=== PATIENT | female | born 1955 | race Caucasian/White ===

== ENCOUNTER 2021-10-26 13:19 | Outpatient (CLI) | payer MEDICARE, SELFPAY | END 2021-10-26 13:20 | disposition home or self-care (01) | LOC: ANHLAB 13:20 | PROVIDERS: PCP Family Medicine; Visit Provider Family Medicine | DX: E03.9 Hypothyroidism, unspecified (principal) | CPT/HCPCS: 36415; 84443 ==

== ENCOUNTER 2022-03-21 11:10 | Outpatient (CLI) | payer MEDICARE, SELFPAY | END 2022-03-21 11:11 | disposition home or self-care (01) | LOC: ANHLAB 11:12 | PROVIDERS: PCP Family Medicine; Visit Provider Family Medicine | DX: E03.9 Hypothyroidism, unspecified (principal) | CPT/HCPCS: 36415; 84443 ==

== ENCOUNTER 2022-06-28 06:38 | Outpatient (CLI) | payer MEDICARE, SELFPAY ==
--- NOTE | ~2022-06-28 | CT_ITS ---
CT Abdomen with contrast. History: Abdominal pain. Spiral CT of the abdomen was performed after the administration of intravenous contrast. 100 cc of Om nipaque 350 was administered intravenously without complication. Dose reduction technique was used on this scan by utilizing automated exposure control and iterative reconstruction technique. The dose-l ength product (DLP) was 186.37 mGy-cm. COMPARISON: 11/27/2012 Findings: Scans through the lung bases demonstrate mild atelectatic change. The liver, spleen, pancreas, adrenals and kidneys are within normal limits. Cholecystectomy clips are noted. No evidence of aortic aneurysm. No lymphadenopathy is seen. Visualized bowel is unremarkable. No ascites. Impression: No significant abnormalities seen. Reviewed, dictated and finalized at location M. NOMIC SPECIALIST Impression: No significant abnormalities seen.
[2022-06-28 07:12] LABS: Estimated Glomerular Filt Rate > 60
== END 2022-06-28 06:39 | disposition home or self-care (01) ==
PROVIDERS: PCP Family Medicine; Visit Provider Physician Assistant
DX: R10.9 Unspecified abdominal pain (principal)
CPT/HCPCS: 74160; Q9967

== ENCOUNTER 2023-04-21 07:43 | Outpatient (CLI) | payer MEDICARE, SELFPAY ==
--- NOTE | ~2023-04-21 | DEXA_ITS ---
Bone Density Report Name: ANGEL HINKLE Age: 67 Sex: Female Ethnicity: White Date of : 1955 Indication: postmenopausal; screening for osteoporosis; Referring Provider: PENNY FOSS Study: Bone densitometry was performed. Exam Date: April 21, 2023 Accession number: [id number] Bone Density: Region BMD T-score Z-score Classification AP Spine(L1-L4) 0.840 -1.9 0.1 Osteopenia Femoral Neck (Left) 0.754 -0.9 0.8 Normal Total Hip (Left) 0.881 -0.5 0.9 Normal Femoral Neck (Right) 0.726 -1.1 0.6 Osteopenia Total Hip (Right) 0.849 -0.8 0.6 Normal Total Hip Mean 0.865 -0.7 0.8 Normal World Health Organization criteria for BMD impression classify patients as: Normal (T-score at or above -1.0), Osteopenia (T-score between -1.0 and -2.5), or Osteoporosis (T-score at or below -2.5). 10-year Fracture Risk(1): Major Osteoporotic Fracture 8.8% Hip Fracture 0.8% Reported Risk Factors: [place] (), Neck BMD=0.726, BMI=26.8 (1) FRAX(R) Version 3.08. Fracture probability calculated for an untreated patient. Fracture probability may be lower if the patient has received treatment. Clinical Information Provided by Patient: Is being treated for osteoporosis Has used the following medications: Prolia (i.e. denosumab) Patient maximum height was 66 Menopause Age: 49 Drinks caffeinated beverages Onset of menses at age 12 Number of children 3 Impression: The patient has low bone mass, based on the Total Spine T-score. The patient has an estimated ten-year risk of hip fracture of 0.8% and an estimated ten-year risk of major fracture of 8.8%, based on the WHO FRAX algorithm. Discussion: It is important to ask patients whether they are taking their medications and to encourage continued and appropriate compliance with their osteoporosis therapies to reduce fracture risk. It is also important to review their risk factors and encourage appropriate calcium and vitamin D intakes, exercise, fall prevention and other lifestyle measures. Follow-Up: Consider a repeat BMD and Vertebral Fracture Assessment (VFA) exam in 2 years or sooner if medically necessary, to reassess this patient's status. Reported by: CLEMENCIA on 04/21/2023 8:14:00 AM. Reviewed, dictated and finalized at location A. [facility]
== END 2023-04-21 07:44 | disposition home or self-care (01) ==
LOC: ANHIMG 07:46
PROVIDERS: PCP Family Medicine; Visit Provider Nurse Practitioner Family
DX: M85.89 Other specified disorders of bone density and structure, multiple sites (principal); M81.0 Age-related osteoporosis without current pathological fracture
CPT/HCPCS: 77080

== ENCOUNTER 2023-05-22 15:06 | Outpatient (CLI) | payer MEDICARE, SELFPAY ==
--- NOTE | ~2023-05-22 | CT_ITS ---
EXAMINATION: CT abdomen pelvis w con DATE: 05/22/2023 16:23 INDICATION: Right lower quadrant abdominal pain TECHNIQUE: Computed tomography (CT) of the abdomen and pelvis was performed with 100 CC Omnipaque 350 intravenous contrast. Automated exposure control and iterative reconstruction technique were employe d. Exam dose: 664.26 mGy-cm total exam DLP. COMPARISON: June 28, 2022 CT abdomen FINDINGS: Left fat-containing foramen of Bochdalek hernia. The lung bases are clear. Normal heart size. No pericardial or pleural effusion. Status post cholecystectomy. No bile duct or pancreatic duct abnormal dilatation is noted. The liver, spleen, pancreas, and adrenal glands and kidneys are unremarkable except for probable pinp oint nonobstructing lower pole right renal calculus. Normal caliber of the abdominal aorta. No intraperitoneal or retroperitoneal or pelvic mass lesion or adenopathy or ascites is noted. The uterus, adnexal areas and urinary bladder are unremarkable. Normal appendix. Mild sigmoid diverticulosis; no CT evidence of diverticulitis. No bowel obstruction, bowel wall thick ening, pneumatosis or intraperitoneal free air is detected. Small fat-containing umbilical hernia. Included skeletal structures are unremarkable. IMPRESSION: Normal appendix Mild sigmoid diverticulosis; no evidence of diverticulitis Status post cholecystectomy Suggestion of a pinpoint nonobstructing lower pole right renal calculus Reviewed, dictated and finalized at Location A. Reviewed, dictated and finalized at location B. OR EMBEDDED SOFTWARE ENGINEER
[2023-05-22 15:26] LABS: Basophils Percent Auto 0.4 % (0.2-1.2); Eosinophils Absolute Auto 0.1 K/mm3 (0-0.3); Eosinophils Percent Auto 1.2 % (0-4.4); Hematocrit 43.4 % (37.0-47.0); Hemoglobin 14.1 g/dL (12.0-15.0); Immature Granulocyte Absolute 0.02 K/mm3 (0.00-0.031); Immature Granulocyte Percent A 0.4 % (0-0.5); Lymphocytes Absolute Auto 1.85 K/mm3 (0.9-3.2); Lymphocytes Percent Auto 37.1 % (18.3-44.2); Mean Corpuscular HGB Conc 32.5 g/dl (32-36); Mean Corpuscular Hemoglobin 31.5 pg (26-34); Mean Corpuscular Volume 96.9 fl (80-100); Mean Platelet Volume 9.6 fl (7.4-10.4); Monocytes Absolute Auto 0.5 K/mm3 (0.1-0.6); Neutrophils Absolute Auto 2.6 K/mm3 (1.3-6.7); Neutrophils Percent Auto 51.9 % (45.5-73.1); Platelet Count Result 232 k/mm3 (150-375); Red Blood Count 4.48 M/mm3 (4.2-5.4); Red Cell Distribution Width 12.5 % (11.5-14.5)
[2023-05-22 15:40] LABS: Alanine Aminotransferase 19 U/L (6-35); Albumin Level 4.2 g/dL (3.5-5.1); Alkaline Phosphatase 78 U/L (38-126); Amylase 137 U/L (30-110); Anion Gap 6 mmol/L (8-16); Aspartate Amino Transferase 35 U/L (14-36); Bilirubin,Total 0.4 mg/dL (0.2-1.3); Blood Urea Nitrogen 12 mg/dL (7-17); Carbon Dioxide 30 mmol/L (22-30); Chloride 105 mmol/L (98-107); Estimated Glomerular Filt Rate > 60; Glucose 98 mg/dL (65-110); Lipase 129 U/L (23-300); Potassium 4.1 mmol/L (3.4-5.0); Sodium 141 mmol/L (137-145)
== END 2023-05-22 15:07 | disposition home or self-care (01) ==
PROVIDERS: PCP Family Medicine; Visit Provider Nurse Practitioner Family
DX: R10.31 Right lower quadrant pain (principal); K57.30 Diverticulosis of large intestine without perforation or abscess without bleeding; Z90.49 Acquired absence of other specified parts of digestive tract
CPT/HCPCS: 36415; 74177; 80053; 82150; 83690; 85025; Q9967

== ENCOUNTER 2023-06-22 09:07 | Emergency (ER) | payer MEDICARE, SELFPAY ==
[2023-06-22 09:11] VITALS: BP 143/92; PULSE 85; RESP 20; TEMP 36.5; O2SAT 100
--- NOTE | 2023-06-22 10:27 | ED.GIBLEED ---
HPI - GI Bleed General Chief complaint: GI Bleed Stated complaint: Rectal bleed Time Seen by Provider: 06/22/23 10:27 Source: patient Mode of arrival: ambulatory Limitations: no limitations History of Present Illness HPI Narrative: Madison is a 59-year-old female patient presenting to the ER today with complaints of possible rectal bleeding. She reports she noticed yesterday after having a bowel movement wiping she saw bright red blood. States that she has had bright red blood in her stool and when wiping ever since. She denies any abdominal pain, nausea, vomiting, or diarrhea. No history of constipation. Was treated in the ER on May 22 for abdominal pain and was thought to have IBS at that time. Was given dicyclomine and stated that this helped her abdominal pain. No history of Crohn's disease or ulcerative colitis. Last colonoscopy was 2017 and states that it was normal other than diverticulosis and external hemorrhoids. History of colon cancer in the family so she receives colonoscopies every 5 years. Did not have a colonoscopy completed this past year and plans to have 1 done this year. Does have some mild rectal pain Related Data Home Medications Medication Instructions Recorded Confirmed diphenhydramine HCl 25 mg tablet 25 mg PO .QD PRN allergies 02/05/20 05/15/23 (Benadryl Allergy) clobetasol 0.05 % topical ointment topical 05/22/23 Allergies Allergy/AdvReac Type Severity Reaction Status Date / Time No Known Allergies Allergy Verified 06/22/23 12:06 Review of Systems Review of Systems: Pertinent positives per HPI. Patient denies any fever, chills, rash, headache, visual changes, dizziness, cough, runny nose, sore throat, shortness of breath, chest pain, palpitations, nausea, vomiting, diarrhea, constipation, abdominal pain, or any urinary issues. [facility] Past Medical History Medical History Fear of flying Lichen sclerosus Ovarian cyst Family History Family History Sibling Diabetes mellitus Father Hypertension Carcinoma of colon Mother Hypertension Family history of malignant neoplasm Grandparent Cerebrovascular accident Daughter Breast cancer Social History Social History Social History: Caffeine-coffee Smoking status: Never smoker Alcohol intake: current Alcohol use details: rarely Substance use: never Substance use type: does not use Lack of Transportation: No Lack of Food: Never True Current Housing: I Have Housing Concerned About Future Housing: No Difficulty Paying Gas/Electric Bills: No Difficulty Paying for Meds: YES Currently Unemployed: No Education: Master's Degree or Higher Difficulty w/ Childcare or Family Care: No Spiritual care concerns: No Comments At the time of my signature, I reviewed and agree with the nursing past medical, surgical, social, and family history. There is no relevant family history pertinent to the patient complaint. Exam Narrative: General: Well-developed, well nourished, in no apparent distress. Head: Normocephalic, atraumatic. Cardio: Regular rate and rhythm, s1 and s2 normal, no murmur appreciated. Resp: Clear to auscultation bilaterally, no rhonchi, rales, wheezing or rubs. Abdomen: Soft, pliable, bowel sounds present in all quadrants, non-tender to palpation, no organomegly, no CVAT tenderness. Rectum: Tender thrombosed hemorrhoid at 12:00 and another small nonthrombosed hemorrhoid at 9:00, bright red blood noted to the rectum, Hemoccult-positive Course Course Emergency Course: Portions of this record may have been created with voice recognition software. Vital Signs Vital signs: Vital Signs Temperature 36.5 C 06/22/23 09:11 Pulse Rate 85 06/22/23 09:11 Respiratory Rate 20 06/22/23 09:11 Blood
[2023-06-22 11:03] LABS: Basophils Percent Auto 0.4 % (0.2-1.2); Eosinophils Percent Auto 0.9 % (0-4.4); Hematocrit 45.5 % (37.0-47.0); Immature Granulocyte Absolute 0.01 K/mm3 (0.00-0.031); Immature Granulocyte Percent A 0.2 % (0-0.5); Lymphocytes Absolute Auto 1.23 K/mm3 (0.9-3.2); Lymphocytes Percent Auto 27.3 % (18.3-44.2); Mean Corpuscular Hemoglobin 32.1 pg (26-34); Mean Corpuscular Volume 97.2 fl (80-100); Mean Platelet Volume 9.8 fl (7.4-10.4); Monocytes Absolute Auto 0.4 K/mm3 (0.1-0.6); Monocytes Percent Auto 8.2 % (2.6-8.5); Neutrophils Absolute Auto 2.8 K/mm3 (1.3-6.7); Platelet Count Result 243 k/mm3 (150-375); Red Blood Count 4.68 M/mm3 (4.2-5.4); Red Cell Distribution Width 12.9 % (11.5-14.5); White Blood Count 4.5 K/mm3 (4.5-10.0)
[2023-06-22 11:13] LABS: Add Urine Microscopic? YES; Appearance Urine Clear (Clear); Bacteria Urine None Seen /hpf; Bilirubin Urine Negative (Negative); Blood Urine 1+ (Negative); Color Urine Yellow (Yellow); Glucose Urine UA Negative (Negative); Ketones Urine Negative (Negative); Leukocyte Esterase Ur Negative LEU/UL (Negative); Need Manual Microscopic Reviewed; Nitrate Urine Negative (Negative); Non Pathogenic Casts 0-2; Protein Urine Negative (Negative); Specific Grav Ur 1.007 (1.001-1.035); Squamous Epithelial Cell Urine None seen /hpf (Few); Urobilinogen Urine 0.2 mg/dL (<2.0); WBC Urine 0-5 /hpf
[2023-06-22 11:14] LABS: Alanine Aminotransferase 20 U/L (6-35); Albumin Level 4.4 g/dL (3.5-5.1); Alkaline Phosphatase 88 U/L (38-126); Anion Gap 8 mmol/L (8-16); Aspartate Amino Transferase 38 U/L (14-36); Bilirubin,Total 0.5 mg/dL (0.2-1.3); Blood Urea Nitrogen 14 mg/dL (7-17); Calcium 9.3 mg/dL (8.4-10.2); Carbon Dioxide 29 mmol/L (22-30); Chloride 103 mmol/L (98-107); Estimated CRCL calculation 62 ml/min; Estimated Glomerular Filt Rate > 60; Glucose 98 mg/dL (65-110); Potassium 3.8 mmol/L (3.4-5.0); Sodium 140 mmol/L (137-145)
[2023-06-22 11:15] LABS: INR 0.9; Prothrombin Time 12.4 Seconds (11.1-14.7)
[2023-06-22 11:16] LABS: Partial Thromboplastin Time 27.8 SECONDS (22.3-36.8)
[2023-06-22 11:41] VITALS: BP 130/77; PULSE 84; RESP 16; O2SAT 100
[2023-06-22 12:28] VITALS: O2SAT 100
[2023-06-22 12:30] VITALS: BP 123/82; PULSE 68; RESP 16; O2SAT 100
== END 2023-06-22 12:51 | disposition home or self-care (01) ==
PROVIDERS: Student in an Organized Health Care Education/Training Program; Emergency Provider Nurse Practitioner Family; PCP Family Medicine
DX: K64.5 Perianal venous thrombosis (principal)
CPT/HCPCS: 36415; 80053; 81001; 85025; 85610; 85730; 86850; 86900; 86901; 99283

== ENCOUNTER 2023-08-16 06:04 | Day surgery (SDC) | payer MEDICARE, SELFPAY ==
[2023-07-14 15:22] VITALS: BMI 26.9
[2023-08-01 10:32] VITALS: BMI 26.9
--- NOTE | 2023-08-16 07:13 | P.PNAN_ITS ---
Anes - Initial Pre Proc Eval Procedure: Operation Date: 08/16/23 08:30 Proposed Procedures p Colonoscopy - Jhon Haro MD Date/Time: 08/16/23 07:13 Surgeon: Jhon Haro MD Pre Op Diagnosis: Family history of malignant neoplasm of digestive Patient Data Age: 67 Gender: F Height: 1.68 m Weight: 75.5 kg Allergies Allergy/AdvReac Type Severity Reaction Status Date / Time No Known Allergies Allergy Verified 08/16/23 07:18 Home Medications Medication Instructions Recorded Confirmed Type diphenhydramine HCl 25 mg tablet 25 mg PO .QD PRN allergies 02/05/20 08/16/23 History (Benadryl Allergy) denosumab 60 mg/mL subcutaneous 60 mg subcut [id number] #1 mL 09/27/22 08/16/23 Rx syringe (Prolia) alprazolam 0.25 mg tablet (Xanax) 0.25 mg PO TID PRN anxiety #14 tabs 04/05/23 08/16/23 Rx dicyclomine 10 mg capsule 10 mg PO TID PRN abdominal pain 05/22/23 08/16/23 Rx #60 caps hyoscyamine sulfate 0.125 mg 0.125 mg sublingual QID PRN 07/10/23 08/16/23 Rx sublingual tablet dyspepsia #30 tabs levothyroxine 50 mcg tablet 50 mcg PO DAILY 08/01/23 08/16/23 History Patient hx anesthesia problems: none Family hx anesthesia problems: none Results Review: All pre-operative results and documents have been reviewed as part of the pre- operative evaluation. [facility] Past Medical History Medical History (Updated 08/16/23 @ 08:01 by Jhon Haro MD) Anxiety Fear of flying Hypothyroidism (acquired) Lichen sclerosus Ovarian cyst Family History Family History Sibling Diabetes mellitus Father Hypertension Carcinoma of colon Mother Hypertension Family history of malignant neoplasm Grandparent Cerebrovascular accident Daughter Breast cancer Social History Social History Social History: Caffeine-coffee Smoking status: Never smoker Alcohol intake: current Alcohol use details: rarely Substance use: never Substance use type: does not use Lack of Transportation: No Lack of Food: Never True Current Housing: I Have Housing Concerned About Future Housing: No Difficulty Paying Gas/Electric Bills: No Difficulty Paying for Meds: YES Currently Unemployed: No Education: Master's Degree or Higher Difficulty w/ Childcare or Family Care: No Living arrangements: with family Spiritual care concerns: No Anes - Eval Final PreProcedure Day of Procedure 08/16/23 07:13 Patient weight: overweight Heart: regular rate and rhythm Lungs: clear to auscultation Airway: Mallampati scale class II Neurological: alert and oriented Last oral intake: >/= 8 hours ASA classification: II Emergent: no Anesthetic plan: proceed Anesthesia type and monitoring: general GIVS and standard monitoring Results Review: All pre-operative results and documents have been reviewed as part of the pre- operative evaluation. Informed Consent: The patient's anesthetic plan and its attendant risks and benefits were discussed with the patient/family/POA. Questions were solicited and answers provided to the satisfaction of the patient/family/POA.
[2023-08-16 07:30] VITALS: BP 141/85; PULSE 83; RESP 16; TEMP 36.6; O2SAT 100; BMI 26.5
[2023-08-16] MEDS: LACTATED RINGERS 1,000 ML 150 ML IV CONT (07:39)
--- NOTE | 2023-08-16 07:59 | PM.HPGS ---
History of Present Illness History of Present Illness Consent: Risks, benefits, and alternatives have been discussed and questions answered. Patient agrees to proceed with procedure. Chief complaint: Family history of malignant neoplasm of digestive Narrative: Madison Wiggins is a 67 year old female presents for colonoscopy. Patient reports that her current weight appetite and bowel movements are normal. She denies abdominal pain. She has had no bleeding. Family history is significant that her father had colon cancer. Patient's previous colonoscopy 5 years ago was unremarkable. Follow-up by primary care service and felt to have irritable bowel syndrome. Review of Systems Review of Systems: Review of Systems is noncontributory. [facility] Past Medical History Medical History (Updated 08/16/23 @ 08:01 by Jhon Haro MD) Anxiety Fear of flying Hypothyroidism (acquired) Lichen sclerosus Ovarian cyst Family History Family History Sibling Diabetes mellitus Father Hypertension Carcinoma of colon Mother Hypertension Family history of malignant neoplasm Grandparent Cerebrovascular accident Daughter Breast cancer Social History Social History Social History: Caffeine-coffee Smoking status: Never smoker Alcohol intake: current Alcohol use details: rarely Substance use: never Substance use type: does not use Lack of Transportation: No Lack of Food: Never True Current Housing: I Have Housing Concerned About Future Housing: No Difficulty Paying Gas/Electric Bills: No Difficulty Paying for Meds: YES Currently Unemployed: No Education: Master's Degree or Higher Difficulty w/ Childcare or Family Care: No Living arrangements: with family Spiritual care concerns: No Meds Home Medications and Allergies Home Medications Medication Instructions Recorded Confirmed Type diphenhydramine HCl 25 mg tablet 25 mg PO .QD PRN allergies 02/05/20 08/16/23 History (Benadryl Allergy) denosumab 60 mg/mL subcutaneous 60 mg subcut [id number] #1 mL 09/27/22 08/16/23 Rx syringe (Prolia) alprazolam 0.25 mg tablet (Xanax) 0.25 mg PO TID PRN anxiety #14 tabs 04/05/23 08/16/23 Rx dicyclomine 10 mg capsule 10 mg PO TID PRN abdominal pain 05/22/23 08/16/23 Rx #60 caps hyoscyamine sulfate 0.125 mg 0.125 mg sublingual QID PRN 07/10/23 08/16/23 Rx sublingual tablet dyspepsia #30 tabs levothyroxine 50 mcg tablet 50 mcg PO DAILY 08/01/23 08/16/23 History Allergies Allergy/AdvReac Type Severity Reaction Status Date / Time No Known Allergies Allergy Verified 08/16/23 07:18 Vital Signs Vital Signs - 24 hr 08/16/23 07:30 Temperature 97.9 F Pulse Rate 83 Respiratory Rate 16 Blood Pressure 141/85 H Pulse Oximetry 100 Oxygen Delivery Room Air Exam Narrative: Physical exam reveals patient signs stable. HEENT exam is unremarkable. Patient is anicteric. Lungs are clear to auscultation and percussion. Heart is without murmur or extra sounds. Abdomen bowel sounds are present soft nontender with no organomegaly. Digital external rectal exam is normal. Assessment and Plan Assessment and plan (1) Family history of colon cancer in father: Code(s): Z80.0 - Family history of malignant neoplasm of digestive organs Status: Acute Assessment and Plan: Father had colon cancer. Plan is colonoscopy now and consider this at 5 year intervals.
[2023-08-16] MEDS: SIMETHICONE ORAL SUSPENSION 20 MG/0.3 ML 30 ML BOTTLE 0.6 ML IRRIGATION (08:39)
[2023-08-16 08:46] VITALS: BP 108/65; PULSE 71; RESP 16; O2SAT 99
[2023-08-16 08:56] VITALS: BP 107/68; PULSE 71; RESP 16; O2SAT 99
[2023-08-16 09:06] VITALS: BP 109/75; PULSE 63; RESP 16; O2SAT 100
--- NOTE | 2023-08-16 12:28 | WPDANESPN ---
Anes - Prog Note Post-Op Date/Time: 08/16/23 12:28 Cardiovascular status: normal Respiratory status: normal Airway patency: baseline Mental status: baseline Post-Op hydration status: normal Vital Signs: Last Vital Signs Temp 36.6 C 08/16/23 07:30 Pulse 63 08/16/23 09:06 Resp 16 08/16/23 09:06 BP 109/75 08/16/23 09:06 Pulse Ox 100 08/16/23 09:06 O2 Del Method Room Air 08/16/23 09:06 Pain Score (VAS): 0 I/O: Intake & Output 08/15/23 08/16/23 08/16/23 23:59 07:59 15:59 Intake Total 0 Balance 0 Post-procedural complaints: none Patient Feedback: Patient satisfied with anesthetic care. Other Findings: Patient vital signs back to baseline. Patient denies nausea and vomiting. Patient's pain under control. Patient OK for discharge.
== END 2023-08-16 09:14 | disposition home or self-care (01) ==
PROVIDERS: PCP Family Medicine; Visit Provider Internal Medicine Gastroenterology
PROC: 0DJD8ZZ Inspection of Lower Intestinal Tract, Via Natural or Artificial Opening Endoscopic (ICD-10-PCS; CPT 45378; principal; 2023-08-16 08:30)
DX: Z80.0 Family history of malignant neoplasm of digestive organs (principal); K57.30 Diverticulosis of large intestine without perforation or abscess without bleeding; K64.8 Other hemorrhoids
CPT/HCPCS: 45378

== ENCOUNTER 2025-02-21 10:01 | Outpatient (CLI) | payer MEDICARE, SELFPAY ==
--- OUTSIDE RECORDS SUMMARY | 2025-02-21 10:37 | XMS_ITS | Clinical Summary ---
Author Organization [facility] [place] Address [address] [place] [address] Phone Care Team Providers Care Rope Machine Setter Name Role Phone Robin Hobbs MD Primary Care Provider [phone] Allergies No known active allergies Medications levothyroxine 50 mcg tablet 1 Active MELATONIN ORAL Take by mouth. Active diphenhydramine HCl (BENADRYL ALLERGY ORAL) Take by mouth. A ctive pantoprazole (PROTONIX) 40 mg Tablet, Delayed Release (E.C.) Take 40 mg by mouth daily in the morning. 3 Active hyoscyamine sulfate 0.125 mg tablet Take 0.125 mg by mouth every 4 hours as needed for Spasm. Active methocarbamoL (ROBAXIN) 750 mg tablet TAKE 1 TABLET BY MOUTH THREE TIMES DAILY NEEDED FOR MUSCLE PAIN 4 Active denosumab (PROLIA) 60 mg/mL Syringe Inject 60 mg by subcutaneous injection one time only. Active Active Problems Patient Care Coordination No te Formatting of this note migh t be different from the original. 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 Assessment & Plan (12/28/2011 4:07 PM CDT): IOV SHYAM ROV 1 year mammo October Hot flashes - mg and black cohosh rec Anxiety over hubands cva and retiring - serentiy, L theonine, etc Gastric ulcer, unspecified a s acute or chronic, without mention of hemorrhage or perforation Asthma Kidney stones Hay fever Diverticulitis Encounters Date Type Department Care Team Description 01/07/2025 External Device Data STL ABSTRACTION Provider, Abstract from Last 3 Months Family History Medical History Relation Name Comments Breast Cancer Daughter 1 Barb breast cancer stage I, ER positive, HER2 negative Breast Cancer Daughter 2 Daisy Wiggins Cancer Father Zaire bladder Cancer - Other Father Z[place] Bladder cance r Breast Cancer Maternal Cousin 40's Cancer - Other Mother Carmen Stomach cance r Gastric Cancer Mother [place] stomach Other Mother Carmen diabetes Ovarian Cancer Neg Hx Relation Name Status Comments Daughter 1 Barb Daughter 2 Daisy Wiggins Father [place] Maternal Cousin Mother Carmen Social History Tobacco Use Types Packs/Day Years Used Date Smoking Tobacco: Never Smokeless Tobacco: Never Tobacco Cessation:Counseling Given: Not Answered Alcohol Use Standard Drinks/Week Comments Yes 0 (1 standard drink = 0.6 oz pur e alcohol) Feeling Safe Answer Date Recorded Do you worry about feeling s afe and happy with the people in your life? No 04/02/2024 Comments No Sex and Gender Information Value Date Recorded Sex Assigned at Female 03/27/2023 8:26 PM DANCE INSTRUCTOR Legal Sex Female 5:42 AM DANCE INSTRUCTOR Gender Identity Female 03/27/2023 8:26 PM DANCE INSTRUCTOR Sexual Orientation Straight 03/27/2023 8: 26 PM DANCE INSTRUCTOR Occupation Industry Job Start Date Job End Date retired teacher Not on file Not on file Not on file Not on file Not on file Not on file Not on file Last Filed Vital Signs Vital Sign Reading Time Taken Comments Blood Pressure 122/78 04/02/2024 9:39 AM DANCE INSTRUCTOR Pulse 70 03/28/2022 10:44 AM DANCE INSTRUCTOR Temperature 36.8 C (98.2 F) 03/28/2022 10:44 AM DANCE INSTRUCTOR Respiratory Rate 16 03/09/2016 11:14 AM CDT Oxygen Saturation 95% 03/28/2022 10:44 AM DANCE INSTRUCTOR Inhaled Oxygen Concentration - - Weight 77.1 kg (170 lb) 04/02/2024 9:39 AM DANCE INSTRUCTOR Height 167.6 cm (5' 6) 04/02/2024 9:39 AM DANCE INSTRUCTOR Body Mass Index 27.44 04/02/2024 9:39 AM DANCE INSTRUCTOR Plan of Treatment Upcoming Encounters Date Type Department Care Team (Late st Contact Info) Description 04/07/2025 9:30 AM DANCE INSTRUCTOR Appointment [facility] [address] [place] [address] Venus Borrego, SALAZAR [address] [place] [address] 04/07/2025 10:30 AM DANCE INSTRUCTOR Office Visit [facility] [address] [place] [address] [place] [address] Venus Borrego, SALAZAR [address] [place] [address] Health Maintenance Due Date Last Done Comments DTAP/TDAP/TD VACCINES (1 - Tdap) 1973 PNEUMOCOCCAL VACCINE 50+ YEA RS (1 of 2 - PCV) 1973 FIT-DNA Q 3 years 11/28/1999 FIT/FOBT Q 1 year 11/28/1999 Flex Sig/CT Colonography Q 5 years 11/28/1999 ZOSTER VACCINE (1 of 2) 2004 Pre-Diabetes and Diabetes Screening 03/09/2013 03/09/2010 RSV VACCINE (60+ or ) (1 - Risk 60-74 years 1-dose series) 2014 INFLUENZA VACCINE (#1) 2024 01/16/2019 COVID-19 Vaccine (2 - 2024-2 6 season) 2025 02/12/2021 BREAST CANCER SCREENING 04/02/2025 04/02/20 24, 03/29/2023, 03/28/2022, Additional history exists OSTEOPOROSIS SCREENING 03/26/2026 03/26/2021 COLORECTAL SCREENING 08/06/2033 08/07/2023, 11/06/2017, 11/06/2017, Additional history exists Colorectal Cancer Screening 08/06/2033 Procedures Procedure Name Priority Date/Time Associated Diagnosis Comments MAMMO 3D CONNIE SCREEN BILAT W OR WO CAD Routine 04/02/2024 9:27 AM DANCE INSTRUCTOR Breast cancer screening by mammogram XR DEXA BONE DENSITY AXIAL 1 OR MORE SITES Routine 03/26/2021 9:22 AM DANCE INSTRUCTOR Asymptomatic menopausal state Screening for osteoporosis HEMOGLOBIN A1C Routine 03/09/2010 3:29 PM CDT Abnormal liver function from Last 3 Months or Most Recently Relevant to Health Maintenance Results * MAMMO SCRN BILAT 3D CONNIE W OR WO CAD (04/02/2024 9:27 AM DANCE INSTRUCTOR) Anatomical Region Laterality Modality Breast Bilateral Mammography 04/02/2024 9:28 AM DANCE INSTRUCTOR Impressions 04/02/2024 10:53 AM DANCE INSTRUCTOR IMPRESSION: No suspicious findings to suggest malignancy in either breast. Annual mammography is recommended. OVERALL FINAL ASSESSMENT: BI-RADS CATEGORY 1: Negative DICTATION LOCATION: [facility] 04/02/2024 10:53 AM DANCE INSTRUCTOR BILATERAL SCREENING DIGITAL MAMMOGRAM WITH 3D TOMOSYNTHESIS AND CAD DATE: 04/02/2024 9:27 AM HISTORY: Routine screening. TECHNIQUE: Full-field digital craniocaudal and mediolateral oblique projections of both breasts were obtained. Low-dose full-field digital breast tomosynthesis examination was performed with 2D and 3D acquisitions. Examination is read in conjunction with computer aided detection. COMPARISON: 03/29/2023 and older BREAST COMPOSITION: There are scattered areas of fibroglandular density. FINDINGS: No suspicious mass, suspicious microcalcifications, or architectural distortion is identified in either breast. Computer aided detection was used in the interpretation of this examination. Procedure Note Kassandra Rodríguez MD - 04/02/2024 BILATERAL SCREENING DIGITAL MAMMOGRAM WITH 3D TOMOSYNTHESIS AND CAD DATE: 04/02/2024 9:27 AM HISTORY: Routine screening. TECHNIQUE: Full-field digital craniocaudal and mediolateral oblique projections of both breasts were obtained. Low-dose full-field digital breast tomosynthesis examination was performed with 2D and 3D acquisitions. Examination is read in conjunction with computer aided detection. COMPARISON: 03/29/2023 and older BREAST COMPOSITION: There are scattered areas of fibroglandular density. FINDINGS: No suspicious mass, suspicious microcalcifications, or architectural distortion is identified in either breast. Computer aided detection was used in the interpretation of this examination. IMPRESSION: No suspicious findings to suggest malignancy in either breast. Annual mammography is recommended. OVERALL FINAL ASSESSMENT: BI-RADS CATEGORY 1: Negative DICTATION LOCATION: [facility] Venus Borrego DISPOSITION CLERK MAMMO ORDERABLES Final Re sult * XR DEXA BONE DENSITY AXIAL 1 OR MORE SITES (03/26/2021 9:22 AM DANCE INSTRUCTOR) Anatomical Region Laterality Modality Computed Radiogr aphy 03/26/2021 9:23 AM DANCE INSTRUCTOR Narrative 03/26/2021 9:36 AM DANCE INSTRUCTOR XR DEXA BONE DENSITY AXIAL 1 OR MORE SITES DATE: 03/26/2021 9:22 AM HISTORY: 65 years old Female with post menopausal symptoms. PROCEDURE: Planar images of the lumbar spine and hip(s) using a ClearView™ Audio DEXA scanner for bone mineral density determination (BMD). Absolute bone mineral density measurements (in gm/cm^2) are available on the original PACS report. FINDINGS: Lumbar Spine (L1-L4) T-score: -2.7 Left femoral neck T-score: -1.1 Right femoral neck T-score: -1.4 Comments: None IMPRESSION Osteoporotic bone mineral density. DEFINITIONS: Normal: T-score above -1.0 Osteopenia T-score less than -1.0 and above -2.5 Osteoporosis: T-score < -2.5 FRAX FRACTURE RISK ASSESSMENT: Risk factors: Secondary osteoporosis 10 Year Probability Of Fracture -Major Osteoporotic: 8.5% -Hip: 0.8% -Comparison population: [place], A major osteoporotic fracture is defined as a fracture of the spine, forearm, hip or shoulder. FOLLOW-UP RECOMMENDATIONS: Patients without high risk factors for osteoporosis: T-score -1.0 to -1.5 - Consider repeat BMD in 5-10 years T-score -1.5 to -2.0 - Consider repeat BMD in 3-5 years T-score -2.0 to - 2.5 - Consider repeat BMD every 2 years Patients on treatment for osteoporosis: 1-2 years after initiation of treatment and every 2 [address] Deuce Bundy DO DICTATION LOCATION: Location - [facility] Procedure Note Deuce Bundy DO - 03/26/2021 XR DEXA BONE DENSITY AXIAL 1 OR MORE SITES DATE: 03/26/2021 9:22 AM HISTORY: 65 years old Female with post menopausal symptoms. PROCEDURE: Planar images of the lumbar spine and hip(s) using a ClearView™ Audio DEXA scanner for bone mineral density determination (BMD). Absolute bone mineral density measurements (in gm/cm^2) are available on the original PACS report. FINDINGS: Lumbar Spine (L1-L4) T-score: -2.7 Left femoral neck T-score: -1.1 Right femoral neck T-score: -1.4 Comments: None IMPRESSION Osteoporotic bone mineral density. DEFINITIONS: Normal: T-score above -1.0 Osteopenia T-score less than -1.0 and above -2.5 Osteoporosis: T-score < -2.5 FRAX FRACTURE RISK ASSESSMENT: Risk factors: Secondary osteoporosis 10 Year Probability Of Fracture -Major Osteoporotic: 8.5% -Hip: 0.8% -Comparison population: [place], A major osteoporotic fracture is defined as a fracture of the spine, forearm, hip or shoulder. FOLLOW-UP RECOMMENDATIONS: Patients without high risk factors for osteoporosis: T-score -1.0 to -1.5 - Consider repeat BMD in 5-10 years T-score -1.5 to -2.0 - Consider repeat BMD in 3-5 years T-score -2.0 to - 2.5 - Consider repeat BMD every 2 years Patients on treatment for osteoporosis: 1-2 years after initiation of treatment and every 2 years [address] Deuce Bundy DO DICTATION LOCATION: Location 1 - [facility] Kianna De Luna NP DIAGNOSTIC IMAGING ORDERABLES Final Result * HEMOGLOBIN A1C (03/09/2010 3:29 PM CDT) HEMOGLOBIN A1C 5.5 4.1 - 6.1 % of Hgb [facility] EST. AVG GLUCOSE, A1C 111 mg/dL [facility] Comment: Effective 01/27/09, the reported estimated average glucose (eAG)/mean blood glucose based on the HbA1c determination will be calculated using the recently derived ADAG study equation. The eAG from the new ADAG study equation are lower than those calculated from the previously used DCCT study formula. For more information, go to the websites: www.ngsp.org and www.diabetes.org. Blood specimen (specimen) 03/09/2010 3:29 PM CDT 03/09/2010 4:03 PM CDT us Isis Robin MD CHEMISTRY ORDERABLES Final Re sult [facility] CLIA# [id number] [address] [facility] [place] [address] from Last 3 Months or Most Recently Relevant to [place] [address] [employer] [facility] Care Teams Rope Machine Setter Relationship Specialty Start Date End Date Robin Hobbs MD PCP - General 08/26/08
--- OUTSIDE RECORDS SUMMARY | 2025-02-21 10:37 | XMS_ITS | Clinical Summary ---
Author Organization [facility] Address [address] [place] [id number] Care Team Providers Care Molder Setter Name Role Phone Unavailable Primary Care Provider Unavailabl e Immunizations Immunization Administration Dates Next Due Covid-19, Mrna, Lnp-s, Pf, 30 Mcg/0.3 Ml Dose (P fizer) 02/12/2021 Social History Tobacco Use Types Packs/Day Years Used Date Smoking Tobacco: Never Assessed Comments Unknown Sex and Gender Information Value Date Recorded Sex Assigned at Not on file Legal Sex Female 5:08 PM CDT Gender Identity Not on file Sexual Orientation Not on file Plan of Treatment Health Maintenance Due Date Last Done Comments Hepatitis C Virus (HCV) Screening 1955 Cologuard 11/28/1999 Colonoscopy 11/28/1999 Colorectal Cancer Screening 11/28/1999 Immunochemical Fecal Occult Blood 11/28/1999 Zoster Immunization (2 of 3) 05/30/2015 04/04/2015 Pneumococcal Immunization (50+ years) (2 of 2 - PCV20 or PCV21) 08/05/2021 08/05/2020 Influenza Immunization (#1) 01/06/202501/07, 01/16/2019, 01/24/2018, Additional history exists SARS-COV-2 Immunization ( season) 2025 02/12/2021, 07/21/2020, 06/30/2020 Respiratory Syncytial Virus (RSV) Immunization (Adult) (1 - 1-dose 75+ series) 2029 DTaP/Tdap/Td Immunization Discontinued 01/16/2019 TdaP Immunization Completed 01/16/2019 Hepatitis B Immunization Aged Out No longer eligible based on patient's age to complete this topic Human Papillomavirus (HPV) Immunization Aged Out No longer eligible based on patient's age to complete this topic Meningococcal Immunization (ACWY) Aged Out No longer eligible based on patient's age to complete this topic Rotavirus Immunization Aged Out No lo nger eligible based on patient's age to complete this topic
== END 2025-02-21 10:02 | disposition home or self-care (01) ==
PROVIDERS: PCP Family Medicine; Visit Provider Nurse Practitioner Family
DX: R14.0 Abdominal distension (gaseous) (principal); R14.2 Eructation; R10.13 Epigastric pain
CPT/HCPCS: 83013

== ENCOUNTER 2025-04-24 07:13 | Outpatient (CLI) | payer MEDICARE, SELFPAY | END 2025-04-24 07:14 | disposition home or self-care (01) | PROVIDERS: PCP Family Medicine; Visit Provider Nurse Practitioner Family | DX: A04.8 Other specified bacterial intestinal infections (principal) | CPT/HCPCS: 83013 ==